=== PATIENT | female | born 1965 | race Caucasian/White ===

== ENCOUNTER → 2016-08-22 | Outpatient (CLI) | payer BC ==
[~2016-08-22] MED LIST: ASA CHILDREN'S81 MG PO; ASACOL HD800 MG PO; FISH OIL 1,2001 EACH PO; FLONASE 0.05% D16 GM NS; LIVALO4 MG PO; NORCO 5-325 TA1 EACH PO; NORVASC5 MG PO; PRILOSEC DPS20 MG PO; TENORMIN-DPS25 MG PO; ZOFRAN4 MG PO; ZOLOFT DPS50 MG PO
== END | disposition home or self-care (01) ==
LOC: RAD.S 14:09
DX: R10.9 Unspecified abdominal pain (principal); N20.0 Calculus of kidney; K91.872 Postprocedural seroma of a digestive system organ or structure following a digestive system procedure; M54.5 Low back pain